=== PATIENT | male | born 1970 | race Caucasian/White ===

== ENCOUNTER 2024-05-01 18:40 | Emergency (ER) | payer OTHER ==
--- NOTE | 2024-05-01 19:26 | ED ---
URI HPI - General Chief Complaint: Upper Respiratory Infection Stated Complaint: cough, sob,back pain, fever Time Seen by Provider: 05/01/24 19:23 Source: patient, RN notes reviewed Mode of arrival: ambulatory Limitations: no limitations - History of Present Illness Initial Comments: 54-year-old male with no significant past medical history presenting to the ER chief complaint of cough x 3 days with fever. States cough is dry. Endorses associated nasal congestion. Tolerating orals well. Denies shortness of breath or chest pain. Denies pulmonary health conditions. - Related Data Previous Rx's Medication Instructions Recorded Azithromycin [Zithromax Z Pack] 0 tab PO DIRECTED #6 tab 05/01/24 Oseltamivir [Tamiflu] 75 mg PO Q12HR #10 cap 05/01/24 Allergies Allergy/AdvReac Type Severity Reaction Status Date / Time bee venom protein (honey bee) Allergy Anaphylaxis Verified 05/01/24 18:49 Review of Systems ROS Statement: Those systems with pertinent positive or pertinent negative responses have been documented in the HPI. ROS Other: All systems not noted in ROS Statement are negative. Past Medical History Additional Past Medical History / Comment(s): cellulitis, sepsis History of Any Multi-Drug Resistant Organisms: MRSA Date of last positivie culture/infection: Unknown Past Surgical History: Back Surgery Past Psychological History: No Psychological Hx Reported Smoking Status: Current every day smoker Past Alcohol Use History: None Reported Past Drug Use History: None Reported General Exam Limitations: no limitations General appearance: alert, in no apparent distress Head exam: Present: atraumatic, normocephalic, normal inspection Eye exam: Present: normal appearance, PERRL, EOMI. Absent: scleral icterus, conjunctival injection, periorbital swelling ENT exam: Present: normal exam, normal oropharynx, mucous membranes moist, TM's normal bilaterally Neck exam: Present: normal inspection. Absent: tenderness, meningismus, lymphadenopathy Respiratory exam: Present: normal lung sounds bilaterally. Absent: respiratory distress, wheezes, rales, rhonchi, stridor Cardiovascular Exam: Present: regular rate, normal rhythm, normal heart sounds. Absent: systolic murmur, diastolic murmur, rubs, gallop, clicks Neurological exam: Present: alert, oriented X3 Psychiatric exam: Present: normal affect, normal mood Skin exam: Present: warm, dry, intact, normal color. Absent: rash Course Vital Signs 05/01/24 05/01/24 05/01/24 18:46 20:42 21:14 Temperature 102.3 F H 100.1 F H Pulse Rate 101 H 94 Respiratory 20 20 Rate Blood Pressure 121/80 106/63 O2 Sat by Pulse 95 95 Oximetry Medical Decision Making - Medical Decision Making Was pt. sent in by a medical professional or institution (, [facility], [employer]ARKING [employer]CH[employer]IC, urgent care, hospital, or [facility]...) When possible be specific @ -No Did you speak to anyone other than the patient for history (EMS, parent, family, police, friend...)? What history was obtained from this source @ -No Did you review nursing and triage notes (agree or disagree)? Why? @ -I reviewed and agree with nursing and triage notes Were old charts reviewed (outside hosp., previous admission, EMS record, old EKG, old radiological studies, urgent care reports/EKG's, [facility] records)? Report findings @ -No old charts were reviewed Differential Diagnosis (chest pain, altered mental status, abdominal pain women, abdominal pain men, vaginal bleeding, weakness, fever, dyspnea, syncope, headache, dizziness, GI bleed, back pain, seizure, CVA, palpatations, mental health, musculoskeletal)? @ -Viral URI, influenza, COVID-19, bronchitis, pneumonia EKG interpreted by me (3pts min.). @ -None X-rays interpreted by me (1pt min.). @ -Chest x-ray reveals subtle scattered opacities may represent atypical pneumonia CT interpreted by me (1pt min.). @ -None done U/S interpreted by me (1pt. min.). @ -None done What testing was considered but not performed or refused? (CT, X-rays, U/S, labs)? Why? @ -None What meds were considered but not given or refused? Why? @ -None Did you discuss the management of the patient with other professionals (professionals i.e. [facility] Gonzalez, P[employer]ING [employer] MECH[employer]IC, lab, RT, psych nurse, social service liaison, flanging machine operator, teacher, regulatory compliance officer, case investigator)? Give summary @ -No Was smoking cessation discussed for >3mins.? @ -No Was critical care preformed (if so, how long)? @ -No Were there social determinants of health that impacted care today? How? (Homelessness, low income, unemployed, alcoholism, drug addiction, transportation, low edu. Level, literacy, decrease access to med. care, [facility] [facility], rehab)? @ -No Was there de-escalation of care discussed even if they declined (Discuss DNR or withdrawal of care, Hospice)? DNR status @ -No What co-morbidities impacted this encounter? (DM, HTN, Smoking, COPD, CAD, Cancer, CVA, ARF, Chemo, Hep., AIDS, mental health diagnosis, sleep apnea, morbid obesity)? @ -None Was patient admitted / discharged? Hospital course, mention meds given and route, prescriptions, significant lab abnormalities, going to OR and other pertinent info. @ - discharge. 54-year-old male presenting for cough x 3 days with associated fevers. Febrile at 102.3, tachycardic 101 bpm, satting 95% on room air. No sign of respiratory distress. Patient provided with dose of ibuprofen for fever. Patient is influenza A positive. Chest x-ray reveals subtle scattered opacities may represent atypical pneumonia. Repeat temperature decreased to 100.1F, HR decreased to 94. Discussed diagnosis of influenza A with patient. Will prescribe Tamiflu. I suspect pneumonia is viral however will send prescription for Z-Ludin to cover for atypical pneumonia. Appropriate return precautions and supportive care discussed with patient. Case was discussed with my ED attending Dr. Fish Undiagnosed new problem with uncertain prognosis? @ -No Drug Therapy requiring intensive monitoring for toxicity (Heparin, Nitro, Insulin, Cardizem)? @ -No Were any procedures done? @ -No Diagnosis/symptom? @ -Influenza A Acute, or Chronic, or Acute on Chronic? @ -Acute Uncomplicated (without systemic symptoms) or Complicated (systemic symptoms)? @ -Uncomplicated Side effects of treatment? @ -No Exacerbation, Progression, or Severe Exacerbation? @ -No Poses a threat to life or bodily function? How? (Chest pain, [place], [place], pneumonia, PE, COPD, DKA, ARF, appy, cholecystitis, CVA, Diverticulitis, Homicidal, Suicidal, threat to staff... and all critical care pts) @ -Not at this time - Lab Data Lab Results 05/01/24 Range/Units 19:31 Influenza Type A (PCR) Detected A (Not Detectd) Influenza Type B (PCR) Not Detected (Not Detectd) RSV (PCR) Not Detected (Not Detectd) SARS-CoV-2 (PCR) Not Detected (Not Detectd) Disposition Clinical Impression: Influenza A Disposition: HOME SELF-CARE Condition: Stable Instructions (If sedation given, give patient instructions): Influenza (ED) Additional Instructions: Take Tamiflu and azithromycin as prescribed. Take Tylenol/ibuprofen as needed for fever. Please return to the Emergency Department if symptoms worsen or any other concerns. Prescriptions: Oseltamivir [Tamiflu] 75 mg PO Q12HR #10 cap Azithromycin [Zithromax Z Pack] 0 tab PO DIRECTED #6 tab Is patient prescribed a controlled substance at d/c from ED?: No Referrals: None,Stated [Primary Care Provider] - 1-2 days Time of Disposition: 21:07
[2024-05-01] MEDS: IBUPROFEN 800 MG TAB PO STA (19:49)
--- NOTE | 2024-05-01 19:58 | XR ---
EXAMINATION TYPE: XR chest 2V DATE OF EXAM: 05/01/2024 7:44 PM COMPARISON: None CLINICAL INDICATION: Male, 54 years old with history of cough; [facility] TECHNIQUE: XR chest 2V Frontal and lateral views of the chest. FINDINGS: Lungs/Pleura: Scattered subtle reticular and hazy opacities. No evidence of pneumothorax, focal conso lidation or pleural effusion. Pulmonary vascularity: Unremarkable. Heart/mediastinum: Cardiomediastinal silhouette is unremarkable. Musculoskeletal: No acute osseous pathology. Other findings: None IMPRESSION: Subtle scattered opacities which may represent an atypical pneumonia. [facility], , 05/01/2024 7:56 PM
[2024-05-01 20:21] VITALS: RESP 20
[2024-05-01 20:41] LABS: Influenza A Detected (Not Detectd); Influenza B Not Detected (Not Detectd); RSV Not Detected (Not Detectd)
[2024-05-01 20:42] VITALS: TEMP 100.1
[2024-05-01 21:16] VITALS: BP 106/63; PULSE 94
== END 2024-05-01 21:14 | disposition home or self-care (01) ==
LOC: EC 18:40
DX: J10.1 Influenza due to other identified influenza virus with other respiratory manifestations (principal); F17.200 Nicotine dependence, unspecified, uncomplicated; Z91.030 Bee allergy status
CPT/HCPCS: 71046; 87636; 99285